=== PATIENT | female | born 1975 | race Two or more races ===

== ENCOUNTER 2018-04-11 13:02 | Emergency (ER) | payer MEDICAID ==
[~2018-04-11] VITALS: Ht 162.6 cm; Wt 86.2 kg
[~2018-04-11 13:02] MED LIST: HYDR-4683; NAPR250T74; PEPCID; [UNRECOGNIZED DRUG - OTHER]
[2018-04-11 14:08] VITALS: BP 127/73
[2018-04-11] MEDS ORDERED: KETOROLAC TROMETH 60MG/2ML VIAL IM ONE (14:30)
[2018-04-11] MEDS ORDERED: CYCLOBENZAPRINE HCL 10 MG TAB PO ONE (15:45)
== END 2018-04-11 15:43 | disposition home or self-care (01) ==
LOC: EDBD 13:02 → ER 13:06
DX: G89.29 Other chronic pain (principal); M54.41 Lumbago with sciatica, right side; Z88.1 Allergy status to other antibiotic agents
CPT/HCPCS: 81002; 96372; 99283; J1885